=== PATIENT | female | born 2000 | race Two or more races ===

== ENCOUNTER 2022-06-03 09:45 | Inpatient (IN) | payer OTHER ==
[~2022-06-03] VITALS: Ht 160 cm; Wt 65.3 kg
[2022-06-08] MEDS ORDERED: IBUPROFEN800 MG PO (06:49)
== END 2022-06-08 10:56 | disposition home or self-care (01) | DRG 743 ==
LOC: O/R 06-07 06:02 → OB/GYN 06-07 06:02
PROVIDERS: ADMIT Obstetrics & Gynecology; ATTEND Obstetrics & Gynecology
PROC: 0UB00ZZ Excision of Right Ovary, Open Approach (ICD-10-PCS; principal; 2022-06-07 08:30)
DX: D27.0 Benign neoplasm of right ovary (principal); Z20.822 Contact with and (suspected) exposure to COVID-19

== ENCOUNTER 2025-04-01 14:20 | Outpatient (CLI) | payer OTHER ==
[~2025-04-01 14:20] MED LIST: IBUPROFEN800 MG PO
== END 2025-04-01 14:26 | disposition home or self-care (01) ==
LOC: LAB 14:20
PROVIDERS: ATTEND Internal Medicine
DX: Z32.00 Encounter for pregnancy test, result unknown (principal)

== ENCOUNTER 2025-04-02 15:16 | Outpatient (CLI) | payer OTHER | END 2025-04-02 15:26 | disposition home or self-care (01) | LOC: PPH VACUNA 15:16 | PROVIDERS: ATTEND Emergency Medicine Pediatric Emergency Medicine | DX: Z23 Encounter for immunization (principal) ==

== ENCOUNTER 2025-06-19 08:59 | Emergency (ER) | payer OTHER ==
[~2025-06-19] VITALS: Ht 160 cm; Wt 68.0 kg
[2025-06-19 09:09] VITALS: BP 117/77
[2025-06-19] MEDS ORDERED: ONDANSETRON HCL 2 MG/ML VIAL IV ONE (09:30)
[2025-06-19] MEDS ORDERED: KETOROLAC TROMETHAMINE 30 MG VIAL IV ONE (09:30)
[2025-06-19] MEDS ORDERED: 0.9 % SODIUM CHLORIDE 1,000 ML IV SCH (09:30)
[2025-06-19] MEDS ORDERED: KETOROLAC TROMETHAMINE 30 MG VIAL ONE ×2 (09:35→13:40)
[2025-06-19] MEDS ORDERED: ONDANSETRON HCL 2 MG/ML VIAL ONE (09:35)
[2025-06-19 10:24] LABS: BASO % 0.3 % (0.1-1.2); EOS # 0.11 (0.04-0.54); EOS % 0.9 % (0.7-7.0); LYMPH # 1.87 (1.18-3.74); LYMPH % 15.3 % (19.3-53.1); MEAN PLATELET VOLUME 10.00 fl (9.4-12.4); MONO # 0.94 (0.24-0.82); MONO % 7.7 % (4.7-12.5); NEUT # 9.25 (1.56-6.13); NEUT % 75.6 % (34.0-71.1); RED CELL DISTRIBUTION WIDTH 12.4 % (11.6-14.4)
[2025-06-19 10:44] LABS: INR 1.05
[2025-06-19 10:48] LABS: ALT/SGPT 20.0 U/L (12-78); AST/SGOT 13.0 U/L (15-37); BILIRUBIN TOTAL 0.55 mg/dL (0.3-1.2); BUN CREA RATIO 15.0 (7.0-25.0); CREATININE SERUM 0.73 mg/dL (0.55-1.02); GFR 97.94; GLOBULINA 3.8 G/DL (2.4-3.5); GLUCOSE FASTING 91.0 mg/dL (65-100); OSMOLALITY SERUM 278.0 MOSM/KG (275-295)
[2025-06-19 12:43] LABS: URINE APPEARANCE Turbid; URINE BILIRRUBIN Negative (NEGATIVE); URINE BLOOD Large; URINE COLOR Yellow; URINE GLUCOSE Negative (NEGATIVE); URINE LEUKOCYTE Large; URINE NITRATE Positive; URINE UROBILINOGEN 0.2 E.U./dl
[2025-06-19 12:47] LABS: URINE CAST 2.34 uL (0.0-1.40); URINE EPITHELIAL CELLS 21.8 uL (0.0-38.8); URINE RBC 115.1 uL (0.0-20.8)
[2025-06-19 12:51] LABS: URINE BACTERIA > 9821.5 uL (0.0-1933); URINE KETONE 40 (NEGATIVE); URINE PROTEIN 100 (NEGATIVE); URINE WBC > 5548.3 uL (0.0-23.2)
[2025-06-19 13:03] LABS: URINE CRYSTALS MODERATE /HPF
[2025-06-19] MEDS ORDERED: CEFTRIAXONE SODIUM 1,000 MG VIAL IV ONE (13:30)
[2025-06-19] MEDS ORDERED: CEPHALEXIN500 M1 PO (13:31)
[2025-06-19] MEDS ORDERED: CEFTRIAXONE SODIUM 1,000 MG VIAL ONE (13:32)
[2025-06-19 14:06] VITALS: O2SAT 100
== END 2025-06-19 14:08 | disposition home or self-care (01) ==
LOC: ER 08:59
PROVIDERS: General Practice
DX: N39.0 Urinary tract infection, site not specified (principal); R10.9 Unspecified abdominal pain; R11.10 Vomiting, unspecified

== ENCOUNTER 2025-06-24 07:20 | Outpatient (CLI) | payer OTHER ==
[~2025-06-24 07:20] MED LIST changes: +CEPHALEXIN500 M1 PO
== END 2025-06-24 07:26 | disposition home or self-care (01) ==
LOC: SONOGRAMA 07:20
PROVIDERS: ATTEND Surgery
DX: R10.9 Unspecified abdominal pain (principal); N83.201 Unspecified ovarian cyst, right side

== ENCOUNTER 2025-07-22 10:58 | Outpatient (CLI) | payer OTHER ==
[2025-07-22 15:40] LABS: VITAMIN D3 25 HYDROXY 26.37 ng/ml (30-120)
== END 2025-07-22 11:02 | disposition home or self-care (01) ==
LOC: LAB 10:58
PROVIDERS: ATTEND Internal Medicine
DX: D51.9 Vitamin B12 deficiency anemia, unspecified (principal); E55.9 Vitamin D deficiency, unspecified